=== PATIENT | male | born 1980 | race Caucasian/White ===

== ENCOUNTER 2019-12-21 07:13 | Emergency (ER) | payer SELFPAY ==
[2019-12-21 07:12] VITALS: BP 143/100; PULSE 86; RESP 18; TEMP 36.8; O2SAT 97; BMI 27.1
--- NOTE | 2019-12-21 07:14 | ED.GENADULT ---
HPI - General Adult General Chief complaint: Altered Mental Status Stated complaint: Found unconscious Time Seen by Provider: 12/21/19 07:13 Source: patient and EMS Mode of arrival: EMS Limitations: no limitations History of Present Illness HPI narrative: 39-year-old male brought in by EMS for evaluation of will was presumed to be a issue associated with opioid abuse. Report was that patient was found by bystanders ?unconscious? in his car. EMS arrived found him breathing, pinpoint pupils, IV was started. He was given 1 mg of Narcan IV which improved his situation. Patient became alert and awake. Never had any reported respiratory distress. Patient did admit to taking a ?opioid ?he did not specify which specific drug that he took. He states that it was a pill. He denied any other drugs or alcohol. Patient reports no symptoms upon my evaluation. Related Data Allergies Allergy/AdvReac Type Severity Reaction Status Date / Time No Known Drug Allergies Allergy Verified 12/21/19 07:24 Review of Systems Constitutional Constitutional: Denies headache(s) ENT Ears, Nose, Mouth, and Throat: Denies headache(s) Cardiovascular Cardiovascular: Denies chest pain and Denies dyspnea Respiratory Respiratory: Denies dyspnea Gastrointestinal Gastrointestinal: Denies abdominal pain and Denies vomiting Integumentary/Breasts Skin/Breast: Denies rash Neurologic Neurologic: Denies headache(s) Comments: ?Unconscious? Patient History Medical History Healthy adult (Acute) Social History lives independently: Yes Exam Initial Vital Signs Initial Vital Signs: Vital Signs Temperature 98.2 F 12/21/19 07:12 Pulse Rate 86 12/21/19 07:12 Respiratory Rate 18 12/21/19 07:12 Blood Pressure 143/100 H 12/21/19 07:12 Pulse Oximetry 97 12/21/19 07:12 Const General: cooperative, comfortable, well developed and well groomed Limitations: mental status not altered HENMT Head: normal to inspection and normocephalic Eyes Pupils: PERRL and pupil size bilaterally 5 Resp Effort & Inspection: normal respiratory effort Auscultation: clear to auscultation bilaterally Cardio Rate: regular rate Rhythm: regular rhythm Skin Lesions: no lesions Rashes: no rashes Neuro General: alert, awake and oriented x3 Cognition: normal cognition Speech: speech normal Extrem General: normal to inspection and capillary refill normal Psych Appearance: grossly normal Course Vital Signs Vital signs: Vital Signs - 8 hr 12/21/19 07:12 12/21/19 07:49 12/21/19 08:11 Temperature 98.2 F Pulse Rate 86 80 79 Respiratory Rate 18 16 Blood Pressure 143/100 H Blood Pressure [Left Arm] 129/80 119/78 Pulse Oximetry 97 99 98 12/21/19 09:00 Temperature Pulse Rate 83 Respiratory Rate 18 Blood Pressure Blood Pressure [Left Arm] 139/75 Pulse Oximetry 95 Medical Decision Making MDM Narrative Medical decision making narrative: Patient was observed for greater than 2 hours after he was given Narcan by EMS. No further Narcan was needed here in the ER. He is alert and oriented x3. GCS of 15. Not clinically intoxicated. Is able to carry on a sentence. Has not had any further episodes of hypoxia or altered mental status. Feel we can hold on further workup for now. Will discharge home. Patient was given return precautions. Discharge Plan Departure Patient Disposition: Home Clinical Impression: Narcotic abuse Instructions: DI for Opioid Addiction Activity Restrictions/Additional Instructions: Recommend you contact your primary provider for follow-up. No driving for the next 24 hours or in the future if you partake in intoxicating substances. Return to the emergency department for any new or worsening symptoms
[2019-12-21 07:49] VITALS: BP 129/80; PULSE 80; RESP 16; O2SAT 99
[2019-12-21 08:11] VITALS: BP 119/78; PULSE 79; O2SAT 98
[2019-12-21 09:00] VITALS: BP 139/75; PULSE 83; RESP 18; O2SAT 95
== END 2019-12-21 10:05 | disposition home or self-care (01) ==
PROVIDERS: Emergency Provider Emergency Medicine
DX: F11.10 Opioid abuse, uncomplicated (principal)
CPT/HCPCS: 99283